=== PATIENT | female | born 1950 | race Caucasian/White ===

== ENCOUNTER 2016-05-18 21:30 | Inpatient (IN) | payer MEDICARE, OTHER ==
--- NOTE | ~2016-05-18 | CN ---
Consultation Report [facility] [address] [place]. [address] NAME: JACINTO FRANCO : 48 STATUS : ADM IN PAT#: [id number] AGE: 65 ADM/REG DATE : 05/18/16 MR#: [id number] REPORT SERV DATE: 05/19/16 DICTATED BY: TRENTON MIN IV DATE: 05/19/16 REPORT STATUS : Draft TRANSCRIBED BY: MODFeliberto DATE: 05/19/16 PULMONARY CONSULTATION DATE OF CONSULTATION: 05/19/2016 REASON FOR REQUEST: Acute on chronic hypercapnic respiratory failure, on BiPAP. HISTORY OF PRESENT ILLNESS: History was obtained from the daughter as well as the records. Ms Franco is a 65-year-old female with a history of morbid obesity, obesity hypoventilation syndrome, COPD, restrictive changes on pulmonary function studies, diabetes mellitus, bipolar disorder, hypothyroidism, chronic pain syndrome on chronic narcotics, past tobacco and alcohol abuse, who is admitted with acute on chronic hypercapnic respiratory failure. The patient has had multiple recent hospitalizations, most recently at [facility] for similar type of symptoms. She was treated, she had pneumonia with chronic infiltrates in both lower lung tovar. She at home developed increasing encephalopathy with a dry and nonproductive cough. There were no fevers, chills, sweats, hemoptysis, or purulent sputum production. She has a significant anxiety component as well as chronic pain for which she takes benzodiazepines and narcotic medications. Because of the worsening encephalopathy, she was brought to the emergency room, where she was more hypercapnic. There was a discussion about whether she should go to the Intensive Care Unit because of her encephalopathy, though the decision was made to use BiPAP, though she was a DNR, and was taken to the floor. Currently, she is on BiPAP, though arousable. The patient reportedly snores and the daughter has seen apneic episodes. She has never undergone evaluation for obstructive sleep apnea. She has had overnight oximetries on her usual supplemental oxygen without reports of findings consistent with obstructive sleep apnea and with no significant desaturations. PULMONARY HISTORY: Remarkable for no history of childhood asthma. She carries the diagnosis of adult COPD. She does have some emphysematous changes on CT scan, though has pulmonary function study which is consistent with a moderate to severe restrictive ventilatory defect most recently in November of 2014. She has had pneumonia on multiple occasions. She has a 25-cori-fcsg smoking history having quit five years ago. There were no occupational exposures to chemicals or solvents. She is up-to-date with the seasonal influenza vaccine as well as pneumococcal vaccinations. PAST MEDICAL HISTORY: 1. Morbid obesity. 2. Obesity hypoventilation syndrome. 3. COPD. 4. Restrictive ventilatory defect with reports of interstitial lung disease and bronchiectasis, though I see no clear evidence for this on a November [address] scan. 5. Diabetes mellitus. Consultation Report [facility] [address] [place]. [address] NAME: JACINTO FRANCO : [birth year] STATUS : ADM IN PAT#: [id number] AGE: 65 ADM/REG DATE : 05/18/16 MR#: [id number] REPORT SERV DATE: 05/19/16 DICTATED BY: TRENTON MIN IV DATE: 05/19/16 REPORT STATUS : Draft TRANSCRIBED BY: EVELIN DATE: 05/19/16 6. Bipolar disorder. 7. Hypothyroidism, on replacement therapy. 8. Chronic pain syndrome. 9. Past alcohol and tobacco dependency. PAST SURGICAL HISTORY: 1. Rectal surgery. 2. Left breast biopsy. 3. Bilateral knee replacements. ALLERGIES: STATIN THERAPY AND GEMFIBROZIL. PHYSICAL EXAMINATION: GENERAL: This is a morbidly obese elderly female, on BiPAP. Sleeping, though arousable. VITAL SIGNS: Temperature is 97.1, heart rate 55, respiratory rate is 20, saturations are 95% on BiPAP and 30%, and blood pressure is 107/53. HEENT: The patient is normocephalic, atraumatic. Extraocular movements are intact. Pupils are reactive to light. Sclerae and conjunctivae are normal. She has a Mallampati 4 airway with marked narrowing of the posterior pharyngeal space. NECK: Without any palpable lymphadenopathy or thyromegaly. CHEST: The patient has bronchial breath sounds at the left base approximately third of the way up. There are some minimal basilar crackles. Breath sounds are symmetrically diminished. No wheezes or rhonchi are noted. CARDIOVASCULAR: Jugular venous pulsations are difficult to elicit. She has 1+ carotid upstrokes. No obvious bruit. She has a distant bradycardic S1, S2. No clear murmur or S3. Peripheral pulses are diminished. ABDOMEN: Obese, soft, and nontender. There are hypoactive bowel sounds. There is no palpable hepatosplenomegaly or mass. EXTREMITIES: Demonstrate scars over both knees. There is no cyanosis, clubbing, or palpable cords. NEUROLOGIC: The patient is arousable, able to move extremities. Strength is 4+ out of 5 and symmetric. LABORATORY DATA: Chest x-ray demonstrates hypoventilatory efforts. There is bibasilar atelectasis, left greater than right with some prominent vascular markings. Hemoglobin is 9.2, hematocrit 31.7, platelet count was 270,000, and white blood cell count is 13.1. Sodium is 141, potassium 4.5, chloride is 96, bicarbonate 39, BUN 26, creatinine 0.91, glucose of 148, and magnesium is 2. Hepatic panel is otherwise unremarkable. BNP is 18.7, troponin is less than 0.02. TSH is 1.41. Most recent blood gas: pH of 7.49, pCO2 of 65, pO2 of 83. Legionella pneumococcal antibody panels are both negative. ASSESSMENT AND PLAN: 1. Respiratory. The patient has restrictive change on previous pulmonary function studies; however, does have some centrilobular emphysematous changes. Much of her Consultation Report [address] [place]. [address] NAME: JACINTO FRANCO : 48 STATUS : ADM IN [facility]#: [id number] AGE: 65 ADM/REG DATE : 05/18/16 MR#: [id number] REPORT SERV DATE: 05/19/16 DICTATED BY: TRENTON MIN IV DATE: 05/19/16 REPORT STATUS : Draft TRANSCRIBED BY: EVELIN DATE: 05/19/16 decompensation may be pharmaceutical related secondary to her obesity hypoventilation syndrome and chronic need for benzodiazepines and narcotics. I am not sure the patient is able to do proper coordination for the Symbicort, so this will be changed to nebulizers with Brovana and Pulmicort. We will continue the Spiriva one capsule daily. EzPAP if not on the BiPAP. We will attempt to get the patient a trilogy unit at the time of discharge. She likely has obstructive sleep apnea and we will need to decide if to attempt a trilogy or to get an outpatient sleep evaluation. 2. Neurologic. We will decrease narcotics and decreased the benzodiazepine dose as needed. The patient will be given a trial of morning Provigil since some of these may be chronic hypersomnolence secondary to her untreated sleep apnea. Ammonia level, B12, and folate level will be obtained. 3. Infectious disease. The patient has chronic atelectasis at the base. Clinically I am not sure she has an infection, procalcitonin level is pending. Antibiotics will be continued for now. 4. Renal. The patient has a metabolic alkalosis, so she will be given Diamox. Phosphate level will be checked and replaced as indicated. 5. Endocrinologic. We will continue the patient's current Synthroid. We will change to prednisone. Insulin sliding scale will be continued. I would question Glucophage while in the hospital. 6. Social. The Care Team had a discussion with the patient's daughter concerning resuscitation status last night. We again had that discussion. The patient felt she was "her hands were tied" concerning being allowed to go to the floor except as a DNR. We reviewed the current clinical situation as well as long-term goals. The daughter agrees to continue the DNR status at this time, though we discussed that this could be changes in the future. Thank you for consulting us. We will follow the patient with you. NM/MODL Trenton Min IV, M.D. / [id number] CC: Yoana Forte MD
--- NOTE | ~2016-05-18 | HP ---
History And Physical [address] [place]. [address] NAME: JACINTO TORRES : [birth year] STATUS : ADM IN PAT#: [id number] AGE: 65 ADM/REG DATE : 05/18/16 MR#: [id number] REPORT SERV DATE: 05/19/16 DICTATED BY: NILA CERVANTES DATE: 05/19/16 REPORT STATUS : Draft TRANSCRIBED BY: MODL DATE: 05/19/16 DATE OF ADMISSION: 05/18/2016 CHIEF COMPLAINT: A 65-year-old female presenting with increasing lethargy and shortness of breath. HISTORY OF PRESENT ILLNESS: The patient's history was obtained through careful interview with the patient, , and daughter, coupled with review of [facility] medical records. For about two days, the patient has had increasing disorientation, confusion. Today, she began to hallucinate, became angry and agitated. She describes increasing shortness of breath characterized by dyspnea on exertion with a nonproductive cough. She has had chest discomfort "raw" quality pain that she describes as "in my lungs" and a particular discomfort at the left lower base of her lung to the back. The pain gets up to about 7/10 and is exacerbated by coughing. She has had chills, but no fevers. She has had nausea, but no vomiting. She apparently has had a good appetite. There has been no arthritis, no rash. REVIEW OF SYSTEMS: Otherwise, a 14-point review of systems was obtained and was negative. PAST MEDICAL HISTORY: 1. COPD oxygen dependent. 2. Pneumonia, multiple occasions since childhood. 3. Diabetes. 4. Anemia. 5. Lupus. 6. Rheumatoid arthritis. 7. Bipolar disorder with agoraphobia. 8. Autoimmune thyroiditis with hypothyroidism. 9. Neuropathy. 10.Urinary retention with chronic intermittent Ace catheter placement. 11.Pulmonary fibrosis. 12.Bronchiectasis followed by Dr. Erazo with negative bronchoscopy May 2015. 13.Pancreatitis with previous alcohol use. 14.Urinary tract infection with the E. coli bacteremia. 15.Colon polyps seen by Vinay RICE. PAST SURGICAL HISTORY: 1. Anal surgery. History And Physical [address] [address] NAME: JACINTO TORRES : [birth year] STATUS : ADM IN PAT#: [id number] AGE: 65 ADM/REG DATE : 05/18/16 MR#: [id number] REPORT SERV DATE: 05/19/16 DICTATED BY: NILA CERVANTES DATE: 05/19/16 REPORT STATUS : Draft TRANSCRIBED BY: EVELIN DATE: 05/19/16 2. Left breast biopsy. 3. Bilateral knee surgery. ALLERGIES: TO STATINS AND GEMFIBROZIL. SOCIAL HISTORY: Quit smoking and quit alcohol about five years ago. She is , has one daughter who is a nurse in [employer], currently working for [employer]. FAMILY HISTORY: Mother of congestive heart failure in her 80s. Father of complications of alcoholism. A grandmother with colon cancer. Sister with pacemaker. A strong family history of diabetes. CURRENT MEDICATIONS: Include albuterol inhaler, Xanax 1 mg p.o. t.i.d. as needed, Symbicort inhaled twice a day, vitamin D, Nexium 20 mg p.o. daily, Lasix 40 mg p.o. daily, Neurontin 600 mg p.o. t.i.d., guaifenesin, hydrocodone p.r.n., Synthroid 125 mcg p.o. daily, Glucophage 500 mg p.o. b.i.d., potassium 20 mEq p.o. daily, prednisone 20 mg p.o. daily, Daliresp 500 mcg p.o. daily, Senokot, Zoloft 200 mg p.o. daily, and Spiriva. PHYSICAL EXAMINATION: VITAL SIGNS: Temperature 98.1, pulse 92, blood pressure 117/45, respiratory rate 18, and O2 saturation 84% on room air. GENERAL: An ill-appearing female, very lethargic, confused, in distress from difficulty breathing. HEENT: Pupils are equal, round, and reactive to light. No conjunctival pallor. No scleral icterus. Nares are patent. Oropharynx is clear of obstruction. Moist mucous membranes at this time. NECK: Trachea midline. No thyromegaly. LYMPH: No cervical lymphadenopathy. No supraclavicular lymphadenopathy. RESPIRATORY: The patient does have scattered crackles and rhonchi on examination. It is difficult to appreciate the exact nature of her respiratory status by exam. I do not know if there are particular wet rales on exam or just a dry crackles from pulmonary fibrosis. I do not appreciate a significant amount of wheezing, however, although there are some elements of exam that do seem "tight." She does have a prolonged expiratory phase of breathing and has a labored respiratory effort. CARDIOVASCULAR: Regular rate and rhythm. No murmurs, rubs, gallops. I do not appreciate lower extremity edema at this time. ABDOMEN: Soft nontender, nondistended. Normal bowel sounds auscultated throughout. No hepatosplenomegaly. DERMATOLOGICAL: Warm and dry extremities, no pallor, no cyanosis. PSYCHIATRIC: Flat affect. Irritable mood. She is poorly oriented to details of her history and time, and location. She has a flat affect, irritable mood. LABORATORY DATA: White blood cell count 19.1, hemoglobin 10, hematocrit 36, platelets 294. Sodium 142, potassium 5.0, chloride 93, bicarb 43, BUN 22, creatinine 2.8, glucose 125, INR 1.0, troponin negative. Initial ABG demonstrates pH 7.36, PaCO2 of 81, a PaO2 of 46, and a bicarb of 45 on room air. It improved to 7.39, PaCO2 of 60, PaO2 of 71, and bicarb of 40 on 30% FiO2. History And Physical [address] [address] NAME: JACINTO TORRES : 48 STATUS : ADM IN [facility]#: [id number] AGE: 65 ADM/REG DATE : 05/18/16 MR#: [id number] REPORT SERV DATE: 05/19/16 DICTATED BY: NILA CERVANTES DATE: 05/19/16 REPORT STATUS : Draft TRANSCRIBED BY: EVELIN DATE: 05/19/16 REVIEW OF SYSTEMS: 1. Chest x-ray by my own evaluation shows chronic interstitial lung disease, very poor lung volumes, elevation of left diaphragm in particular. 2. EKG by my own evaluation shows sinus rhythm, left ventricular hypertrophy. ASSESSMENT AND PLAN: 1. Hypercapnic and hypoxic respiratory failure, placed on BiPAP. Consult Dr. Erazo, cps team lead. 2. Chronic obstructive pulmonary disease exacerbation, placed on IV Solu-Medrol, Duo nebulizers. 3. Systemic inflammatory response syndrome, possible pneumonia. The patient has a quite elevated white blood count of 19.1 with pulse greater than 90, and hypoxia and confusion. We will check blood cultures. Placed on IV antibiotics for now. Check procalcitonin. 4. Pulmonary fibrosis with bronchiectasis. 5. DNR discussion. No intubation. No CPR, no shock but okay to pursue BiPAP and chemical code. I did discuss the case at length with Dr. Zuniga, who did evaluate the patient himself in the emergency department. KPL/MODL Nila Cervantes M.D. / [id number] CC: Yoana Forte MD Carlos Baleeiro, M.D.
--- NOTE | ~2016-05-18 | CN ---
Consultation Report [facility] [address] [place]. [address] NAME: JACINTO FRANCO : 48 STATUS : ADM IN PAT#: [id number] AGE: 65 ADM/REG DATE : 05/18/16 MR#: [id number] REPORT SERV DATE: 05/19/16 DICTATED BY: ANNALEE ART DATE: 05/19/16 REPORT STATUS : Draft TRANSCRIBED BY: MODL DATE: 05/19/16 PULMONARY CRITICAL CARE EVALUATION DATE OF CONSULTATION: I was asked to evaluate Ms. Franco in the emergency department room [address] Hugo and [address] Garcia from [facility] to assist with assessing Ms. Franco's respiratory failure this evening. After reviewing her records, she is a 65-year-old lady with a complicated past pulmonary history including advanced stage COPD with chronic hypoxemic respiratory failure on 3 L to 4 L of home oxygen and chronic hypercapnic respiratory failure for which she has never had noninvasive ventilation as an outpatient. She presented this evening with worsening mental status and shortness of breath and was started on BiPAP in the emergency room with some improvement in her CO2 level. The initial plan was to move her to the floor; however, subsequent gas was not much improved and I was asked to make additional recommendations and also to discuss goals of care with her family including her and her daughter, who is actually a former CCU nurse here at this facility, but who is currently working for hospice. Ms. Franco's primary care physician is Dr. Moss from [facility], who sees her in the home. He most recently evaluated her on Monday at which point, he advised the patient that she likely had less than 6 months left to live based on her multiple medical problems. She has been hospitalized at least 3 times in the last several months for respiratory failure. Her daughter reports that her quality of life at home is essentially bedbound, although she is able to interact with her family. On further review of her history, it appears that she has fairly advanced stage COPD, but also some component of interstitial lung disease/pulmonary fibrosis, which is felt to be secondary to autoimmune disease. She has a history of both SLE and rheumatoid arthritis documented in her chart and does have bronchiectasis for which she is followed by Dr. Erazo in the Pulmonary Medicine Clinic here at [facility]. She was previously seen by Dr. Grace, Dr. Taveras, Dr. Santiago, and Dr. Montgomery during inpatient stays over the last couple of years. Her daughter verbalized that the family understood that she was approaching the end of her life and that Dr. Moss had begun to breach the code status with the patient during recent visits. It sounds like they had never come to a clear decision with regard of her goals of care and I was asked to assist with helping assess and also to discuss goals with her family this evening. I met with her and daughter in the patient's room where she was on BiPAP 27/08 and was fairly somnolent, although she was able to be aroused with sternal rub. We reviewed options for ongoing care including intubation for airway protection and respiratory support and transfer to the intensive care unit as a full code and also continuation of BiPAP with ongoing administration of steroids, bronchodilators, diuretics, and antibiotics and moving her to the floor as a limited code (no intubation, no shock, no CPR). After approximately 45 minutes of discussion, her and daughter were in agreement that they would move toward limited interventions and they did both verbalize that they wanted her to be limited code and would prefer to move her to a room on the floor where she could have them at the bedside continuously. I did emphasize that they could change their mind about that decision at any time should they feel the patient's wish would be for intubation. All questions were answered and I updated Dr. Hugo and Dr. Garcia on the outcome of our discussion and she was ultimately admitted to [address] [place] [address] under the Hospital Medicine Service Consultation Report [address] [place]. [address] NAME: JACINTO FRANCO : 48 STATUS : ADM IN PAT#: [id number] AGE: 65 ADM/REG DATE : 05/18/16 MR#: [id number] REPORT SERV DATE: 05/19/16 DICTATED BY: ANNALEE ART DATE: 05/19/16 REPORT STATUS : Draft TRANSCRIBED BY: EVELIN DATE: 05/19/16 with a consult to the Pulmonary team tomorrow morning for ongoing assistance with management of her hypoxemic and hypercapnic respiratory failure. Please feel free to call with any questions or if I may be of additional assistance. CJ/EVELIN Annalee Art MD / [id number] CC: Yoana Forte MD
--- NOTE | ~2016-05-18 | DS ---
Discharge Summary [facility] [address] [place]. [address] NAME: JACINTO TORRES : 48 STATUS : ADM IN [facility]#: [id number] AGE: 66 ADM/REG DATE : 05/18/16 MR#: [id number] REPORT SERV DATE: 05/23/16 DICTATED BY: FABIANA LUQUE DATE: 05/23/16 REPORT STATUS : Draft TRANSCRIBED BY: MODL DATE: 05/23/16 ADMISSION DATE: 05/18/2016 DISCHARGE DATE: 05/23/2016 DISCHARGE DIAGNOSES: 1. Acute on chronic hypoxic hypercapnic respiratory failure. 2. Obesity hypoventilation syndrome. 3. Morbid obesity. 4. Diabetes mellitus. 5. Chronic urinary catheter use. HISTORY OF PRESENT ILLNESS: This is a 66-year-old morbidly obese female patient, who came to the hospital with short of breath and lethargic. Please see dictated H and P done by Dr. Guicho Garcia. HOSPITAL COURSE: Please see dictated consultation from Dr. Min. She was treated with the BiPAP on the telemetry bed. Had improvement within 24 hours. She was also treated with IV diuretics with the BiPAP. She has significantly improved. She does not have any evidence of pneumonia on the current admission. She has been in stable condition. She is eating outside food and she recovered very well. Because of the obesity hypoventilation, we are trying to get her on trilogy on discharge, so behavioral health case manager deeply involved, and we will try to get her trilogy with home use. Overall, had a stable hospitalization and maximized inpatient benefit. The patient will be discharged home with Bumex 2 mg in the morning time instead with Lasix 40 mg in the morning time and trilogy use. I explained to her daughter, her , and the patient herself. The patient will be discharged to home with home health resumed in trilogy. DISCHARGE MEDICATIONS: 1. Bumex 2 mg in the morning time. 2. Vitamin D once a day. 3. Neurontin 600 mg three times a day. 4. [place] is recommended to be cut it in half of 10/325 every four hours as needed. 5. Synthroid 125 mcg once a day. 6. Nexium 20 mg after dinner. 7. Potassium 20 mEq a day. 8. Daliresp 500 mcg once a day. 9. Zoloft 200 mg once a day. 10.Spiriva once a day. 11.Prednisone maintaining dose at 20 mg once a day. 12.DuoNeb four times a day. 13.Xanax 1 mg three times a day as needed. 14.Symbicort twice a day. 15.Glucophage 500 mg twice a day. Recommend cutting down her scheduled pain medication. Discharge Summary [address] [facility] [address] NAME: JACINTO TORRES : 48 STATUS : ADM IN PAT#: [id number] AGE: 66 ADM/REG DATE : 05/18/16 MR#: [id number] REPORT SERV DATE: 05/23/16 DICTATED BY: FABIANA LUQUE DATE: 05/23/16 REPORT STATUS : Draft TRANSCRIBED BY: EVELIN DATE: 05/23/16 DISPOSITION: The patient is discharged home with a trilogy and home health resumed. TIME SPENT: More than 30 minutes. EKL/MODL Fabiana Luque M.D. / [id number] CC: Yoana Forte MD
[2016-05-18 20:27] LABS: BASOPHILS 0.1 %; BASOPHILS ABSOLUTE 0.02 10/3/uL (0.0-0.16); EOSINOPHILS 0.2 %; EOSINOPHILS ABSOLUTE 0.04 10/3/uL (0.0-0.53); ER CBC TAT 0 Hrs 03 Mins; HEMATOCRIT 36.5 % (36.0-48.0); HEMOGLOBIN 10.1 g/dL (12.0-16.0); IMMATURE GRANULOCYTES 0.4 %; IMMATURE GRANULOCYTES ABSOLUTE 0.08 10/3/uL (0.0-0.11); LYMPHOCYTES 5.3 %; LYMPHOCYTES ABSOLUTE 1.01 10/3/uL (0.67-4.30); MEAN CORPUS HGB CONC 27.7 g/dL (32.0-36.0); MEAN CORPUSCULAR HEMOGLOB 24.8 pg (26.0-34.0); MEAN PLATELET VOLUME 8.5 fL (9.2-13.0); MONOCYTES 7.2 %; MONOCYTES ABSOLUTE 1.38 10/3/uL (0.21-1.20); NEUTROPHILS 86.8 %; NEUTROPHILS ABSOLUTE 16.58 10/3/uL (2.02-8.40); PLATELET COUNT 294 10/3/uL (150-400); RBC DISTRIBUTION WIDTH 16.4 % (12.0-16.0); RED CELL COUNT 4.08 10/6/uL (4.0-5.6); WHITE BLOOD CELLS 19.1 10/3/uL (4.5-10.5)
[2016-05-18 20:30] LABS: MANUAL DIFF NO %; MEAN CORPUSCULAR VOLUME 89.5 fL (80-100)
[2016-05-18 20:34] LABS: PARTIAL THROMBO TIME 26.8 SEC (22.5-37.2); PROTIME (NOT ORD) 12.8 SEC (12.0-14.5)
[2016-05-18 20:37] LABS: ALLENS TEST Pos; BE (BASE EXCESS) 16.5 MEQ/L (0 +/- 2.5); CARBOXYHEMOGLOBIN 1.5 % (0-3); HCO3 (ACTUAL BICARBONATE) 45.3 MEQ/L (23-27); HEMOBLOGIN CONTENT 11.5 G/DL (12-16); INSTRUMENT SERIAL # 8087; METHEMOGLOBIN 0.4 % (0-3); O2 CONTENT 13.4 VOL% (18-24); OPERATOR ID 334499; PCO2 (CO2 TENSION) 81 MMHG (35-45); PO2 (O2 TENSION) 46 MMHG (79-93); SAMPLE Arterial; pH 7.37 (7.37-7.43)
[2016-05-18 20:49] LABS: CALCIUM, SERUM 9.7 MG/DL (8.5-10.4); CHEST PAIN PROFILE TAT 0 Hrs 25 Mins; CHLORIDE, SERUM 93 MMOL/L (96-112); CREATININE 0.79 MG/DL (0.55-1.02); GFR AFRICAN AMERICAN 90 ML/MIN (>=60); GFR NON AFRICAN AMERICAN 78 ML/MIN (>=60); GLUCOSE, SERUM 125 MG/DL (60-99); SODIUM, SERUM 142 MMOL/L (135-148); TROPONIN I <0.02 NG/ML (<0.05)
[2016-05-18 21:08] LABS: BUN (BLOOD UREA NITROGEN) 22 MG/DL (6-23); CO2 (CARBON DIOXIDE) 43 MMOL/L (24-34)
[~2016-05-18 21:30] MED LIST: ADVIL PO; AMB10 PO; AMB5; AMB5 PO; AUG875 PO; BUSPAR10 PO; CEFACLOR500 MG PO; CEFT5 PO; COD15 PO; D.O.S.100 MG PO; DALIRESP500 MCG PO; DELTADOSE PO; DSS PO; DUONEB; DUONEB INH; ERY-TAB250 MG PO; FLORASTOR250 MG PO; GGDM5ML PO; GGEXPUD PO; GLUCOPHXR PO; GLUCPH PO; KDUR20 PO; KLOR-CON 1010 MEQ PO; KLOR-CON M1010 MEQ PO; KLOR-CON M2020 MEQ PO; KLOR-CON20 MEQ PO; L20 PO; L40 PO; LEVAQUIN750 MG PO; LEVOTHROID25 MCG PO; LEVOTHROID75 MCG PO; LEVOTHYROXIN100 MCG PO; LEVOTHYROXIN125 MCG PO; LEVOTHYROXIN88 MCG PO; LORTABLIQ PO; MAXIMUM D3 PO; MEVACOR PO; MEVACOR40 MG PO; MIRALAXPKT; MIRALAXPKT PO; MUCINEX600 MG PO; NEUR600 PO; NEXIUM20 M1 PO; NEXIUM40 PO; NITROII10C TOP; NORCO1 TAB; NORCO1 TAB PO; NORV25 PO; NYSTATPOW TOP; OCEAN NAS; OMNICEF300 PO; OXECTA5 MG PO; P10 PO; P20 PO; PR12.5 PO; PR25; PR25 PO; PRILOSEC40 MG; PROAIR HFA; PROAIR HFA INH; PROVENTSOL INH; SENTAB PO; SEROQUEL25 PO; SPIRIVA INH; SPIRIVA RESPIMAT INH; SYMBICORT 160/41 INH INH; SYN.025B PO; SYN075 PO; SYN125 PO; SYN88 PO; SYNTHROID175 MCG PO; VIGAMOX OPH; VITAMIN D1000 UNI1 PO; X5 PO; XANAX1 MG; XANAX1 MG PO; Z-PAK PO; ZESTORETIC1 TAB PO; ZITH250 PO; ZOFRAN8 PO; ZOL100 PO
[2016-05-18 22:26] LABS: BE (BASE EXCESS) 16.3 MEQ/L (0 +/- 2.5); BIPAP 20/8 cm.H2O; CARBOXYHEMOGLOBIN 1.5 % (0-3); HCO3 (ACTUAL BICARBONATE) 45.8 MEQ/L (23-27); HEMOBLOGIN CONTENT 11.5 G/DL (12-16); INSTRUMENT SERIAL # 8087; METHEMOGLOBIN 0.5 % (0-3); O2 CONTENT 15.1 VOL% (18-24); OPERATOR ID 334499; PCO2 (CO2 TENSION) 89 MMHG (35-45); PO2 (O2 TENSION) 74 MMHG (79-93); SAMPLE Arterial; pH 7.33 (7.37-7.43)
[2016-05-18 22:27] LABS: ALLENS TEST Pos
[2016-05-18] MEDS ORDERED: DUONEB INH (22:47)
[2016-05-18] MEDS ORDERED: MAXIMUM D3 PO (22:48)
[2016-05-18] MEDS ORDERED: SYMBICORT 160/41 INH INH (22:48)
[2016-05-18] MEDS ORDERED: XANAX1 MG PO (22:48)
[2016-05-18] MEDS ORDERED: NEUR600 PO (22:49)
[2016-05-18] MEDS ORDERED: L40 PO (22:49)
[2016-05-18] MEDS ORDERED: NEXIUM20 M1 PO (22:49)
[2016-05-18] MEDS ORDERED: CHERATUSSIN PO (22:50)
[2016-05-18] MEDS ORDERED: NORCO1 TAB PO (22:50)
[2016-05-18] MEDS ORDERED: GLUCPH PO (22:51)
[2016-05-18] MEDS ORDERED: KDUR20 PO (22:51)
[2016-05-18] MEDS ORDERED: SYN125 PO (22:51)
[2016-05-18] MEDS ORDERED: ZOL100 PO (22:52)
[2016-05-18] MEDS ORDERED: SENTAB PO (22:52)
[2016-05-18] MEDS ORDERED: P20 PO (22:52)
[2016-05-18] MEDS ORDERED: SPIRIVA RESPIMAT INH (22:53)
[2016-05-18] MEDS ORDERED: OCEAN NAS (22:53)
[2016-05-18] MEDS ORDERED: DALIRESP500 MCG PO (22:53)
[2016-05-18 23:18] LABS: BE (BASE EXCESS) 12.6 MEQ/L (0 +/- 2.5); BIPAP 24/6 cm.H2O; CARBOXYHEMOGLOBIN 1.6 % (0-3); HEMOBLOGIN CONTENT 11.1 G/DL (12-16); INSTRUMENT SERIAL # 8087; METHEMOGLOBIN 0.5 % (0-3); O2 CONTENT 14.6 VOL% (18-24); OPERATOR ID 334499; PCO2 (CO2 TENSION) 68 MMHG (35-45); PO2 (O2 TENSION) 71 MMHG (79-93); SAMPLE Arterial; pH 7.39 (7.37-7.43)
[2016-05-19 04:58] LABS: BE (BASE EXCESS) 18.8 MEQ/L (0 +/- 2.5); BIPAP 24/6 cm.H2O; HCO3 (ACTUAL BICARBONATE) 45.4 MEQ/L (23-27); HEMOBLOGIN CONTENT 10.4 G/DL (12-16); INSTRUMENT SERIAL # 35151; METHEMOGLOBIN 0.7 % (0-3); O2 CONTENT 14.1 VOL% (18-24); PCO2 (CO2 TENSION) 65 MMHG (35-45); PO2 (O2 TENSION) 80 MMHG (79-93); SAMPLE Arterial; pH 7.47 (7.37-7.43)
[2016-05-19 08:18] LABS: BASOPHILS 0.1 %; BASOPHILS ABSOLUTE 0.01 10/3/uL (0.0-0.16); EOSINOPHILS 0 %; HEMATOCRIT 31.9 % (36.0-48.0); HEMOGLOBIN 9.2 g/dL (12.0-16.0); IMMATURE GRANULOCYTES 0.4 %; IMMATURE GRANULOCYTES ABSOLUTE 0.05 10/3/uL (0.0-0.11); LYMPHOCYTES 8.7 %; LYMPHOCYTES ABSOLUTE 1.14 10/3/uL (0.67-4.30); MEAN CORPUS HGB CONC 28.8 g/dL (32.0-36.0); MEAN CORPUSCULAR HEMOGLOB 24.9 pg (26.0-34.0); MEAN PLATELET VOLUME 8.7 fL (9.2-13.0); MONOCYTES 4.4 %; MONOCYTES ABSOLUTE 0.58 10/3/uL (0.21-1.20); NEUTROPHILS 86.4 %; NEUTROPHILS ABSOLUTE 11.27 10/3/uL (2.02-8.40); PLATELET COUNT 270 10/3/uL (150-400); RBC DISTRIBUTION WIDTH 16.1 % (12.0-16.0); RED CELL COUNT 3.69 10/6/uL (4.0-5.6); WHITE BLOOD CELLS 13.1 10/3/uL (4.5-10.5)
[2016-05-19 08:19] LABS: MANUAL DIFF NO %; MEAN CORPUSCULAR VOLUME 86.4 fL (80-100)
[2016-05-19 08:27] LABS: INTERNATIONAL NORMAL RATI 1.1 UNITS (-); PARTIAL THROMBO TIME 27.3 SEC (22.5-37.2); PROTIME (NOT ORD) 13.7 SEC (12.0-14.5)
[2016-05-19 08:40] LABS: A/G RATIO 0.9 (0.7-1.9); ALBUMIN 2.9 G/DL (3.5-5.0); ALKALINE PHOSPHATASE 55 U/L (45-117); CALCIUM, SERUM 9.7 MG/DL (8.5-10.4); CHLORIDE, SERUM 96 MMOL/L (96-112); CO2 (CARBON DIOXIDE) 39 MMOL/L (24-34); CREATININE 0.91 MG/DL (0.55-1.02); GFR AFRICAN AMERICAN 76 ML/MIN (>=60); GFR NON AFRICAN AMERICAN 66 ML/MIN (>=60); GLOBULIN 3.3 G/DL (2.5-4.1); GLUCOSE, SERUM 148 MG/DL (60-99); POTASSIUM, SERUM 4.5 MMOL/L (3.5-5.3); SGOT(AST) 5 U/L (5-40); SGPT(ALT) 10 U/L (5-65); SODIUM, SERUM 141 MMOL/L (135-148); TOTAL BILIRUBIN 0.2 MG/DL (0-1.2); TOTAL PROTEIN 6.2 G/DL (6.0-8.5); TROPONIN I <0.02 NG/ML (<0.05)
[2016-05-19 08:44] LABS: BUN (BLOOD UREA NITROGEN) 26 MG/DL (6-23)
[2016-05-19 09:13] LABS: B NATRIURETIC PEPTIDE (BNP) 18.7 PG/ML (< 100.0)
[2016-05-19 09:20] LABS: BE (BASE EXCESS) 21.3 MEQ/L (0 +/- 2.5); CARBOXYHEMOGLOBIN 0.3 % (0-3); HCO3 (ACTUAL BICARBONATE) 47.6 MEQ/L (23-27); INSTRUMENT SERIAL # 8083; PCO2 (CO2 TENSION) 65 MMHG (35-45); PO2 (O2 TENSION) 83 MMHG (79-93); pH 7.49 (7.37-7.43)
[2016-05-19 09:21] LABS: ALLENS TEST Pos; BIPAP 24/6 cm.H2O; HEMOBLOGIN CONTENT 9.7 G/DL (12-16); METHEMOGLOBIN 0.2 % (0-3); O2 CONTENT 13.3 VOL% (18-24); OPERATOR ID 31928; SAMPLE Arterial
[2016-05-19 09:42] LABS: PROCALCITONIN 1.27 ng/mL (<0.5)
[2016-05-19 12:01] LABS: FOLATE 9.1 NG/ML (>5.2)
[2016-05-19 13:10] LABS: GLYCOHEMOGLOBIN (HbA1c) 6.2 % (4.7-6.1)
[2016-05-20 10:26] LABS: CALCIUM, SERUM 9.7 MG/DL (8.5-10.4); CHLORIDE, SERUM 94 MMOL/L (96-112); CO2 (CARBON DIOXIDE) 38 MMOL/L (24-34); CREATININE 1.22 MG/DL (0.55-1.02); GFR AFRICAN AMERICAN 53 ML/MIN (>=60); GFR NON AFRICAN AMERICAN 46 ML/MIN (>=60); IRON BINDING CAPACITY 290 MCG/DL (225-410); IRON, SERUM 31 MCG/DL (35-150); POTASSIUM, SERUM 3.6 MMOL/L (3.5-5.3); SODIUM, SERUM 142 MMOL/L (135-148)
[2016-05-20 10:27] LABS: BUN (BLOOD UREA NITROGEN) 39 MG/DL (6-23); GLUCOSE, SERUM 228 MG/DL (60-99)
[2016-05-21 05:47] LABS: ALBUMIN 3.1 G/DL (3.5-5.0); CALCIUM, SERUM 9.8 MG/DL (8.5-10.4); CHLORIDE, SERUM 96 MMOL/L (96-112); CO2 (CARBON DIOXIDE) 39 MMOL/L (24-34); CREATININE 1.11 MG/DL (0.55-1.02); GFR AFRICAN AMERICAN 60 ML/MIN (>=60); GFR NON AFRICAN AMERICAN 52 ML/MIN (>=60); PHOSPHORUS, SERUM 3.4 MG/DL (2.5-4.5); POTASSIUM, SERUM 3.8 MMOL/L (3.5-5.3); SODIUM, SERUM 142 MMOL/L (135-148)
[2016-05-21 05:48] LABS: BUN (BLOOD UREA NITROGEN) 35 MG/DL (6-23); GLUCOSE, SERUM 102 MG/DL (60-99)
[2016-05-21 05:50] LABS: BASOPHILS 0.2 %; BASOPHILS ABSOLUTE 0.03 10/3/uL (0.0-0.16); EOSINOPHILS 1.1 %; EOSINOPHILS ABSOLUTE 0.15 10/3/uL (0.0-0.53); HEMATOCRIT 33.9 % (36.0-48.0); HEMOGLOBIN 9.8 g/dL (12.0-16.0); IMMATURE GRANULOCYTES 2.5 %; IMMATURE GRANULOCYTES ABSOLUTE 0.34 10/3/uL (0.0-0.11); LYMPHOCYTES 27.3 %; LYMPHOCYTES ABSOLUTE 3.75 10/3/uL (0.67-4.30); MEAN CORPUS HGB CONC 28.9 g/dL (32.0-36.0); MEAN CORPUSCULAR HEMOGLOB 25.1 pg (26.0-34.0); MEAN CORPUSCULAR VOLUME 86.9 fL (80-100); MEAN PLATELET VOLUME 8.7 fL (9.2-13.0); MONOCYTES 7.5 %; MONOCYTES ABSOLUTE 1.03 10/3/uL (0.21-1.20); NEUTROPHILS 61.4 %; NEUTROPHILS ABSOLUTE 8.44 10/3/uL (2.02-8.40); PLATELET COUNT 322 10/3/uL (150-400); RBC DISTRIBUTION WIDTH 16.6 % (12.0-16.0); WHITE BLOOD CELLS 13.7 10/3/uL (4.5-10.5)
[2016-05-21 06:04] LABS: MANUAL DIFF NO %
[2016-05-22 04:24] LABS: BUN (BLOOD UREA NITROGEN) 36 MG/DL (6-23); CHLORIDE, SERUM 96 MMOL/L (96-112); CO2 (CARBON DIOXIDE) 37 MMOL/L (24-34); CREATININE 1.17 MG/DL (0.55-1.02); GFR AFRICAN AMERICAN 56 ML/MIN (>=60); GFR NON AFRICAN AMERICAN 48 ML/MIN (>=60); POTASSIUM, SERUM 3.7 MMOL/L (3.5-5.3); SODIUM, SERUM 143 MMOL/L (135-148)
[2016-05-22 04:25] LABS: GLUCOSE, SERUM 154 MG/DL (60-99)
[2016-05-23 05:32] LABS: HEMATOCRIT 36.4 % (36.0-48.0); HEMOGLOBIN 10.7 g/dL (12.0-16.0); MANUAL DIFF YES %; MEAN CORPUS HGB CONC 29.4 g/dL (32.0-36.0); MEAN CORPUSCULAR HEMOGLOB 25.3 pg (26.0-34.0); MEAN CORPUSCULAR VOLUME 86.1 fL (80-100); MEAN PLATELET VOLUME 8.7 fL (9.2-13.0); PLATELET COUNT 341 10/3/uL (150-400); RBC DISTRIBUTION WIDTH 16.3 % (12.0-16.0); RED CELL COUNT 4.23 10/6/uL (4.0-5.6)
[2016-05-23 05:43] LABS: ALBUMIN 3.3 G/DL (3.5-5.0); CHLORIDE, SERUM 100 MMOL/L (96-112); CO2 (CARBON DIOXIDE) 35 MMOL/L (24-34); CREATININE 1.13 MG/DL (0.55-1.02); GFR AFRICAN AMERICAN 58 ML/MIN (>=60); GFR NON AFRICAN AMERICAN 50 ML/MIN (>=60); PHOSPHORUS, SERUM 3.3 MG/DL (2.5-4.5); POTASSIUM, SERUM 3.6 MMOL/L (3.5-5.3); SODIUM, SERUM 142 MMOL/L (135-148)
[2016-05-23 05:44] LABS: BUN (BLOOD UREA NITROGEN) 30 MG/DL (6-23); GLUCOSE, SERUM 108 MG/DL (60-99)
[2016-05-23 05:58] LABS: BAND NEUTROPHILS 1 %; LYMPHOCYTES 27 %; LYMPHOCYTES ABSOLUTE (CALC) 4.59 10/3/uL (0.67-4.30); MONOCYTES 6 %; MONOCYTES ABSOLUTE (CALC) 1.02 10/3/uL (0.21-1.20); NEUTROPHILS ABSOLUTE (CALC) 11.39 10/3/uL (2.02-8.40); RBC MORPHOLOGY ABN (NORMAL); SEGMENTED NEUTROPHIL (0) 66 %; TOTAL NUCLEATED CELLS 100
[2016-05-23] MEDS ORDERED: BUM2 PO (10:27)
[2016-11-27] MEDS ORDERED: OXYCOD PO (14:45)
[2016-11-27] MEDS ORDERED: PR25 PO (14:48)
[2016-11-27] MEDS ORDERED: L80 PO (14:50)
[2016-11-27] MEDS ORDERED: ULTRAM50 PO (14:50)
[2016-12-02] MEDS ORDERED: KRISTALOSE20 GM (10:54)
[2016-12-02] MEDS ORDERED: DURICEF (10:55)
[2016-12-02] MEDS ORDERED: CIP5 PO (10:56)
[2016-12-02] MEDS ORDERED: XANAX1 MG (10:57)
[2016-12-02] MEDS ORDERED: BISR (10:59)
[2016-12-02] MEDS ORDERED: MIRALAX POWDER1 PKT (11:04)
[2016-12-02] MEDS ORDERED: DULERA 200 MCG/13 GM INH (11:05)
== END 2016-05-24 01:53 | disposition home or self-care (01) | DRG 189 ==
LOC: ER 21:30 → 7NO 23:47
PROVIDERS: Emergency Medicine; Hospitalist; Internal Medicine; Internal Medicine Critical Care Medicine
PROC: 5A09357 Assistance with Respiratory Ventilation, Less than 24 Consecutive Hours, Continuous Positive Airway Pressure (ICD-10-PCS; principal; 2016-05-18)
DX: J96.21 Acute and chronic respiratory failure with hypoxia (principal); E87.3 Alkalosis; E11.40 Type 2 diabetes mellitus with diabetic neuropathy, unspecified; M32.9 Systemic lupus erythematosus, unspecified; E66.2 Morbid (severe) obesity with alveolar hypoventilation; J44.1 Chronic obstructive pulmonary disease with (acute) exacerbation; Z68.41 Body mass index [BMI] 40.0-44.9, adult; J96.22 Acute and chronic respiratory failure with hypercapnia; J84.10 Pulmonary fibrosis, unspecified; F31.9 Bipolar disorder, unspecified; F40.00 Agoraphobia, unspecified; E03.9 Hypothyroidism, unspecified; Z99.81 Dependence on supplemental oxygen; G89.4 Chronic pain syndrome; G47.33 Obstructive sleep apnea (adult) (pediatric); Z66 Do not resuscitate; Z51.5 Encounter for palliative care; R33.9 Retention of urine, unspecified; M06.9 Rheumatoid arthritis, unspecified; Z86.010 Personal history of colon polyps; Z87.440 Personal history of urinary (tract) infections; Z79.891 Long term (current) use of opiate analgesic; Z74.01 Bed confinement status; Z87.01 Personal history of pneumonia (recurrent); Z96.653 Presence of artificial knee joint, bilateral; Z87.891 Personal history of nicotine dependence; Z79.84 Long term (current) use of oral hypoglycemic drugs; Z81.1 Family history of alcohol abuse and dependence; Z83.3 Family history of diabetes mellitus; Z80.0 Family history of malignant neoplasm of digestive organs; Z79.52 Long term (current) use of systemic steroids
CPT/HCPCS: 36600; 71010; 80048; 80053; 80069; 82140; 82607; 82746; 82805; 82962; 83036; 83540; 83550; 83605; 83735; 83880; 84100; 84145; 84443; 84484; 85025; 85610; 85730; 87449; 93005; 94640; 94660; 96374; 99285; A9270-GY; J0456; J1120; J2405; J2920; J2930

== ENCOUNTER 2016-07-08 14:43 | Emergency (ER) | payer MEDICARE, OTHER ==
[~2016-07-08 14:43] MED LIST changes: +BUM2 PO; +CHERATUSSIN PO
[2016-07-08 15:04] LABS: ASCORBIC ACID (UR NOT ORDER) NEG (NEG); BILIRUBIN, URINE NEGATIVE (NEG); ER URINALYSIS TAT 0 Hrs 07 Mins; KETONE, URINE NEGATIVE (NEG); LEUKOCYTE ESTERASE(NOT OR LARGE (NEG); NITRITE (URINE) POS (NEG); WBC (NOT ORDERED) (RFLEX) 16 (0-5)
[2016-11-27] MEDS ORDERED: OXYCOD PO (14:45)
[2016-11-27] MEDS ORDERED: PR25 PO (14:48)
[2016-11-27] MEDS ORDERED: L80 PO (14:50)
[2016-11-27] MEDS ORDERED: ULTRAM50 PO (14:50)
[2016-12-02] MEDS ORDERED: KRISTALOSE20 GM (10:54)
[2016-12-02] MEDS ORDERED: DURICEF (10:55)
[2016-12-02] MEDS ORDERED: CIP5 PO (10:56)
[2016-12-02] MEDS ORDERED: XANAX1 MG (10:57)
[2016-12-02] MEDS ORDERED: BISR (10:59)
[2016-12-02] MEDS ORDERED: MIRALAX POWDER1 PKT (11:04)
[2016-12-02] MEDS ORDERED: DULERA 200 MCG/13 GM INH (11:05)
== END 2016-07-08 18:15 | disposition home or self-care (01) ==
LOC: ER 14:43
PROVIDERS: Emergency Medicine
DX: T84.022A Instability of internal right knee prosthesis, initial encounter (principal); N39.0 Urinary tract infection, site not specified; J44.9 Chronic obstructive pulmonary disease, unspecified; M32.9 Systemic lupus erythematosus, unspecified; F31.9 Bipolar disorder, unspecified; E11.9 Type 2 diabetes mellitus without complications; D64.9 Anemia, unspecified; Z88.8 Allergy status to other drugs, medicaments and biological substances; Z79.84 Long term (current) use of oral hypoglycemic drugs; Z79.52 Long term (current) use of systemic steroids; Z79.899 Other long term (current) drug therapy
CPT/HCPCS: 73560-RT; 81001; 87077; 87086; 87186; 99284; A9270-GY